=== PATIENT | male | born 1970 | race Caucasian/White ===

== ENCOUNTER 2019-08-08 14:57 | Inpatient (IN) | payer OTHER ==
[~2019-08-08 14:57] MED LIST: Iopamidol-370 76% 500 ML 1 ML ONE
[2019-08-08] MEDS ORDERED: Metoprolol Tartrate 5 MG/5 ML VIAL ONE (15:17)
[2019-08-08 15:58] LABS: Acetaminophen Less than 6.0 mcg/mL (10.0-30.0); Alcohol Less than 10 mg/dL (Less than 10); Magnesium 1.7 mg/dL (1.6-2.6); Salicylate Less than 8.0 mg/dL (15.0-30.0)
--- NOTE | 2019-08-08 17:37 | CT ---
CT ANGIOGRAM CHEST WITH CONTRAST: History: Tachycardia, pre-syncope, chest pain. Comparison: Chest radiograph, same day, for reference. FINDINGS: CT angiogram chest performed after the intravenous administration of contrast. 3D Rendering was provi ded. No proximal segmental pulmonary arterial filling defect. The semi-aorta is mildly ectatic, measuring up to 4 cm in size. No mediastinal adenopathy. No pericardial effusion. Diffuse hepatic steatosis. The lungs are clear. No pneumothorax. No effusion. No pulmonary consolidation. Sternum and manubrium are intact. Thoracic spine is intact. IMPRESSION: 1. No pulmonary embolism. 2. No evidence for pneumonia or other acute thoracic abnormality. 3. Mild ectasia of the aorta which measures 4 cm in size. POS: [facility]
[2019-08-08] MEDS ORDERED: Acetaminophen 325 MG TAB PO PRN (17:52)
[2019-08-08] MEDS ORDERED: Acetaminophen 650 MG Suppository PR PRN (17:52)
[2019-08-08 17:56] LABS: Bilirubin Negative (Negative); Blood, Urine Negative (Negative); Clarity Clear (Clear); Glucose, Urine (Dipstick) Normal (Negative); Leukocyte Negative Leu/uL (Negative); Nitrite Negative (Negative); Protein, Urine (Dipstick) Negative (Neg-Trace); Urobilinogen Normal mg/dL (Less than 2)
--- NOTE | 2019-08-08 18:04 | PDOC.HHP ---
Hospitalist HPI - History of Present Illness chest pain/palpitations History of Present Illness: Mr. Olivo states he woke up this morning feeling a "twinge" in his chest as if his chest muscles were sore. He has been doing a lot of work outside and states he has terrible allergies. After taking a shower he began to feel "wobbly" and continued to have discomfort in the center of his chest which he describes as a "pressure". This prompted him to seek medical attention at [facility]. He had initial labs done which showed elevated AST/ALT, otherwise unremarkable. Patient noted to be in SVT with HR in 160s-170s. He was given Aspirin at home and 4 mg of Morphine. He ED Course: In the ED here he has had a low grade temp of 99.5. HR has been in the 70s to 90s. EKG shows normal sinus rhythm, Rate (beats per minute): 94, with premature atrial complexes, Compared with previous EKG from, earlier today x 2, Interpretation:, Similar to old EKG, Conduction with, ST segments normal, T waves normal, Cum[place] normal, Clinical impression:, non-specific EKG. His BP was elevated at 172/118, therefore he was given Metoprolol tartrate 10 mg IV x 1. 1L of NS given as well. Trop negative. D-Dimer 0.53. CXR done was uremarkable. CTA Chest showed no PE. There was mild ectasia of the aorta which measures 4 cm in size. Hospitalist ROS - Review of Systems Constitutional: denies: fever, chills, sweats, weakness, malaise, other Eyes: denies: pain, vision change, conjunctivae inflammation, eyelid inflammation, redness, other ENT: denies: ear pain, ear discharge, nose pain, nose discharge, nose congestion , mouth pain, mouth swelling, throat pain, throat swelling, other Respiratory: reports: cough (associated with allergies when he is working outside) Cardiovascular: reports: chest pain (central, pressure, has resolved), light headedness Gastrointestinal: denies: nausea, vomiting, abdominal pain, diarrhea, constipation, melena, hematochezia, other Genitourinary: denies: dysuria, frequency, incontinence, hematuria, retention, other Musculoskeletal: denies: neck pain, shoulder pain, arm pain, back pain, hand pain, leg pain, foot pain, other Skin: denies: rash, lesions, leda, bruising, other Neurological: denies: weakness, numbness, incoordination, change in speech, confusion, seizures, other - Medication Medications: ALLERGIES: NKDA CURRENT MEDICATIONS: 1. Aspirin. 2. Zyrtec. Hospitalist History - Past Medical History Source: patient Pulmonary: reports: deep vein thrombosis (in 2011 following ankle surgery) ENT: reports: Allergic rhinitis - Past Surgical History Past Surgical History: reports: Other (Ankle surgery in 2010) - Family History Family History: reports: no pertinent history - Social History Smoking Status: Never smoker Alcohol: reports: Heavy (5-6 cans of beer daily, denies withdrawal symptoms in the past or seizures.) Living Situation: With Family Occupation: Recently furloughed Activity level: independent ambulation - Exam General Appearance: NAD, awake alert Eye: PERRL, anicteric sclera ENT: normocephalic atraumatic Neck: supple Heart: RRR Respiratory: CTAB, no wheezes, no rales, normal chest expansion, no tachypnea Gastrointestinal: soft, non-tender, non-distended, no guarding, no rigidity Extremities: no cyanosis, no clubbing, no edema Skin: normal turgor, no lesions, no rashes Neurological: cranial nerve grossly intact Musculoskeletal: normal tone, normal strength, no muscle wasting Psychiatric: normal affect, normal behavior, A&O x 3 Hospitalist Results - Labs Lab results: Troponin I Less than 0.010 ng/mL (< 0.028) 08/08/19 15:24 Urine Ketones 10 mg/dL (Negative) A 08/08/19 17:34 Urine Blood Negative (Negative) 08/08/19 17:34 Urine Nitrite Negative (Negative) 08/08/19 17:34 Ur Leukocyte Esterase Negative Ann/uL (Negative) 08/08/19 17:34 - Radiology Interpretation CT scan - chest Status: report reviewed by me Chest x-ray Status: report reviewed by me Hospitalist H&P A/P - Problem (1) Chest pain Code(s): R07.9 - CHEST PAIN, UNSPECIFIED Status: Resolved (2) SVT (supraventricular tachycardia) Code(s): I47.1 - SUPRAVENTRICULAR TACHYCARDIA Status: Acute (3) Palpitation Code(s): R00.2 - PALPITATIONS Status: Acute (4) Lightheaded Code(s): R42 - DIZZINESS AND GIDDINESS Status: Acute (5) History of DVT of lower extremity Code(s): Z86.718 - PERSONAL HISTORY OF OTHER VENOUS THROMBOSIS AND EMBOLISM Status: Chronic (6) Daily consumption of alcohol Code(s): Z78.9 - OTHER SPECIFIED HEALTH STATUS Status: Chronic (7) Seasonal allergies Code(s): J30.2 - OTHER SEASONAL ALLERGIC RHINITIS Status: Chronic - Plan Plan: Cardiac monitoring. Continue to trend troponins. Monitor BP. Initiate ASE protocol. UDS/UA/UCx ordered in ED. Results pending. Echo ordered. Gentle hydration, given s/p CTA and NPO at midnight. CODE STATUS: FULL Surrogate decision maker: His Young Olivo. Case discussed with Dr. Cevrantes who agrees with plan as above.
[2019-08-08 18:25] LABS: Amphetamine Not Detected (NotDetected); Barbiturates Screen Not Detected (NotDetected); Benzodiazepine Screen Not Detected (NotDetected); Cocaine Metabolite Screen Not Detected (NotDetected); Medtox Control Line Valid? VALID (VALID); Medtox Reader # READER 1; Methadone Not Detected (NotDetected); Methamphetamine Not Detected (NotDetected); Opiate Screen Detected (NotDetected); Oxycodone Screen Not Detected (NotDetected); Phencyclidine (PCP) Not Detected (NotDetected); THC/Cannabinoid Screen Not Detected (NotDetected); Tricyclic Screen Not Detected (NotDetected)
[2019-08-08 19:21] LABS: Troponin I Less than 0.010 ng/mL (< 0.028)
[2019-08-08 19:43] VITALS: BMI 28.8
[2019-08-08 22:25] LABS: Troponin I 0.035 ng/mL (< 0.028)
[2019-08-09 04:57] LABS: #Basophils 0.1 thou/uL (0.0-0.2); #Eosinphils 0.2 thou/uL (0.0-0.7); #Lymphocytes 1.8 thou/uL (1.20-3.40); #Neutrophils 5.8 thou/uL (1.40-6.50); %Eosinophils 2.7 % (0.0-10.0); %Lymphocytes 19.9 % (21.0-51.0); %Monocytes 11.4 % (0.0-10.0); Hemoglobin 13.9 g/dL (14.0-18.0); Mean Corpuscular HGB CONC 32.6 g/dL (32.0-36.0); Mean Corpuscular Hemoglobin 31.9 pg (27.0-31.0); Mean Corpuscular Volume 97.9 fL (78.0-98.0); Mean Platelet Volume 9.1 fL (7.4-10.4); Platelet Count 203 thou/uL (130-400); RBC Distribution Width 12.4 % (11.5-14.5); Red Blood Cell (RBC) Count 4.35 mill/uL (4.70-6.10); White Blood Cell (WBC) Count 8.9 thou/uL (4.8-10.8)
[2019-08-09] MEDS: Nitroglycerin 0.4 MG TAB (25 Tab Bottle) PO PRN ×2 (04:58→05:08)
[2019-08-09 05:20] LABS: ALT (SGPT) 120 U/L (8-55); AST (SGOT) 81 U/L (5-34); Albumin 3.8 g/dL (3.5-5.0); Alkaline Phosphatase 71 U/L (40-110); Anion Gap 12 mmol/L (10-20); BUN (Urea Nitrogen) 10 mg/dL (8.9-20.6); Bilirubin, Total 1.2 mg/dL (0.2-1.2); Calc. Creatinine Clearance 140 mL/min (70-130); Calcium 8.6 mg/dL (7.8-10.44); Carbon Dioxide 26 mmol/L (22-29); Chloride 105 mmol/L (98-107); Estimated GFR-MDRD Greater than 90; Globulin 2.8 g/dL (2.4-3.5); Glucose 101 mg/dL (70-105); Potassium 3.9 mmol/L (3.5-5.1); Protein, Total 6.6 g/dL (6.0-8.3); Sodium 139 mmol/L (136-145)
[2019-08-09 05:22] LABS: Troponin I 0.014 ng/mL (< 0.028)
[2019-08-09] MEDS ORDERED: Aspirin 81 mg Enteric Coated Tablet PO SCH (09:00)
[2019-08-09] MEDS: Multivit, Therapeutic 1 TAB PO SCH (09:09)
[2019-08-09] MEDS: Aspirin 325 mg Enteric Coated Tablet PO SCH (09:09)
[2019-08-09] MEDS ORDERED: Metoprolol Tartrate 25 MG TAB PO SCH (14:45)
--- NOTE | 2019-08-09 20:16 | EKG ---
Test Reason : CP Blood Pressure : / mmHG Vent. Rate : 075 BPM Atrial Rate : 075 BPM P-R Int : 134 ms QRS Dur : 086 ms QT Int : 478 ms P-R-T Axes : 047 049 046 degrees QTc Int : 533 ms Normal sinus rhythm Prolonged QT Abnormal ECG No previous ECGs available Confirmed by DR. Ignacia BRIGGS MD ([id number]) on 08/09/2019 8:16:33 PM Referred By: CHING Confirmed By:DR. Ignacia BRIGGS MD
[2019-08-09] MEDS: Metoprolol Tartrate 25 MG TAB PO SCH (20:33)
--- NOTE | 2019-08-09 20:46 | CON ---
DATE OF CONSULTATION: HISTORY: Ezra Olivo is a 49-year-old white male without any significant recent medical history. He does admit that he probably had his blood pressure checked in the last 5 or 6 years. Yesterday morning at approximately 08:30 after getting up from bed, he felt a twinge in his chest. He went outside and did some yard work. When he came back and took a shower, felt very lightheaded and dizzy. Also had some pressure in his chest. Ultimately, EMS was called and from the EKG at that time , his heart rate was 150 per minute. This appears to be atypical atrial flutter. He was taken to emergency room in [place] and EKG there revealed sinus rhythm with sinus arrhythmia. He ultimately was transferred here for further evaluation. Blood pressure was elevated in the emergency room. Here at [facility], he received metoprolol 10 mg IV. He denies any symptoms at this time. PAST MEDICAL HISTORY: He denies any previous history of hypertension. No hypercholesterolemia or diabetes. He does have history of right leg DVT after ankle ORIF surgery and was placed on warfarin for this approximately 10 years ago. MEDICATIONS: Zyrtec, aspirin 81, multivitamin. ALLERGIES: PEANUTS. SOCIAL HISTORY: He smoked many years ago. He has 5 to 6 beers per day. He works repairing copiers. FAMILY HISTORY: His mother and father apparently had myocardial infarctions. REVIEW OF SYSTEMS: A 10-point review of systems is otherwise unremarkable. PHYSICAL EXAMINATION: VITAL SIGNS: Blood pressure 155/110, pulse 73. HEENT: PERRL. NECK: Supple. CHEST: Clear. CARDIAC: S1 and S2 normal without any S3, S4, or murmurs. Carotid upstrokes normal without bruits. ABDOMEN: Normal bowel sounds without tenderness or organomegaly. EXTREMITIES: Revealed no clubbing, cyanosis, or edema. NEUROLOGIC: Grossly intact. SKIN: Warm and dry. LABORATORY DATA: EKG in [place] revealed sinus rhythm with extreme sinus arrhythmia, otherwise was unremarkable. Echocardiogram revealed ejection fraction of 50% to 55% with mild left atrial enlargement, mild mitral regurgitation, mild tricuspid regurgitation. Hemoglobin 13.9, hematocrit 42.6, white count 8900, platelets 203,000. D-dimer 0.53. Sodium 139, potassium 3.9, chloride 105, carbon dioxide 26, BUN 10, and creatinine 0.76. Troponin I normal x3 and then there was one of 0.035. TSH is normal. AST 150, ALT 167. BNP 18.5. Urine drug screen is positive for opiates ; however, he received morphine intravenously at [facility]. Otherwise , urine drug screen is negative. Chest CTA revealed no pulmonary embolism. No evidence for pneumonia. There is mild ectasia of the aorta measuring 4 cm. IMPRESSION: 1. Transient episodes of atypical atrial flutter with heart rates up to 150 per minute. 2. Probably untreated hypertension. 3. Positive family history. 4. Distant smoker. 5. ETOH use of 5 to 6 beers per day with elevated liver function tests. RECOMMENDATIONS: Mr. Olivo appears to have had an episode of atypical atrial flutter and also hypertension. I will start him on beta-crystal to control blood pressure and also hopefully to control his atypical atrial flutter. He certainly in the future may need more potent medications. His CHADS-VASc score is 1 and I feel that he could just take aspirin. Also with chest pressure, he will undergo adenosine Cardiolite testing for further evaluation. A fasting lipid profile will be obtained. Certainly, his liver function tests need to be further evaluated and maybe related to his 5 to 6 beers per day. Job ID: [id number] [facility]ITAL[facility]
--- NOTE | 2019-08-09 22:14 | PDOC.HOSPP ---
- Subjective Encounter Date: 08/09/19 Encounter Time: 09:00 Subjective: no overnight events. Chest pain has resolved and has no complaints. Tele showing normal sinus with paroxysmal aflut - Objective Vital Signs & Weight: Vital Signs (12 hours) Temp Pulse Resp BP Pulse Ox 08/09/19 15:32 98.0 F 73 15 165/97 H 97 08/09/19 11:15 97.6 F 73 16 155/100 H 97 Weight Weight 184 lb I&O: 08/08/19 08/09/19 08/10/19 06:59 06:59 06:59 Intake Total 480 720 Output Total 600 Balance -120 720 Result Diagrams: 08/09/19 04:23 08/09/19 04:23 Hospitalist ROS - Review of Systems Constitutional: denies: fever, chills, sweats, weakness, malaise, other Respiratory: denies: cough, dry, shortness of breath, hemoptysis, SOB with excertion, pleuritic pain, sputum, wheezing, other Cardiovascular: denies: chest pain, palpitations, orthopnea, paroxysmal noc. dyspnea, edema, light headedness, other Gastrointestinal: denies: nausea, vomiting, abdominal pain, diarrhea, constipation, melena, hematochezia, other - Medication Medications: Active Medications Generic Name Dose Route Start Last Admin Trade Name Freq PRN Reason Stop Dose Admin Aspirin 81 mg 08/09/19 09:00 08/09/19 09:09 Ecotrin PO 81 mg DAILY MARIBEL Administration Metoprolol Tartrate 25 mg 08/09/19 21:00 08/09/19 20:33 Lopressor PO 25 mg BID MARIBEL Administration Multivitamins 1 tab 08/09/19 09:00 08/09/19 09:09 Theragran PO 1 tab DAILY MARIBEL Administration Nitroglycerin 0.4 mg 08/08/19 18:32 08/09/19 05:08 Nitrostat PO 0.4 mg Q5MIN PRN Administration Chest Pain - Exam General Appearance: NAD, awake alert Heart: RRR, no murmur, no gallops, no rubs, normal peripheral pulses Respiratory: CTAB, no wheezes, no rales, no ronchi, normal chest expansion, no tachypnea, normal percussion Gastrointestinal: soft, non-tender, non-distended, normal bowel sounds, no palpable masses, no hepatomegaly, no splenomegaly, no bruit Extremities: no edema Psychiatric: normal affect, normal behavior, A&O x 3 Hosp A/P - Plan #substrenal chest pain -related to exertion and relieved by rest -intermediate consortium CAD pretest probabilty -pending stress test #paroxysmal atrial flutter -CHADSVASC 1 -continue aspirin -start metoprolol as per cardiology #Hepatitis -ALT > AST -check for hepatitis, hemochromatosis, NAFLD
[2019-08-10 04:57] LABS: ALT (SGPT) 427 U/L (8-55); AST (SGOT) 423 U/L (5-34); Alkaline Phosphatase 73 U/L (40-110); Anion Gap 13 mmol/L (10-20); BUN (Urea Nitrogen) 10 mg/dL (8.9-20.6); Bilirubin, Total 1.8 mg/dL (0.2-1.2); Calc. Creatinine Clearance 137 mL/min (70-130); Calcium 9.2 mg/dL (7.8-10.44); Carbon Dioxide 25 mmol/L (22-29); Chloride 105 mmol/L (98-107); Cholesterol 173 mg/dl (< 200 Desired); Estimated GFR-MDRD Greater than 90; Glucose 104 mg/dL (70-105); HDL Cholesterol 86 mg/dL (>60 Neg Risk); Iron Binding Capacity, Total 264 mcg/dL (261-462); LDL Cholesterol, Calculated 77 mg/dL; Potassium 3.9 mmol/L (3.5-5.1); Sodium 139 mmol/L (136-145); Transferrin, Serum 211 mg/dL (174-364); Triglycerides 48 mg/dL (Less than 150)
[2019-08-10 05:16] LABS: HBSAB Concentration 2.24 mIU/mL; HBSAg Index 0.11 S/CO (0-0.99); Hep B Core Total Ab Non-Reactive (NonReactive); Hep B Core Total Index 0.06 S/CO (0-0.79); Hep B Surf AB Non-Reactive (NonReactive); Hep B Surf Ag Non-Reactive S/CO (NonReactive)
--- NOTE | 2019-08-10 08:25 | ULT ---
COMPLETE ABDOMINAL ULTRASOUND: Comparison: None History: Elevated LFTs, diarrhea. Technique: Multiplanar grayscale and color doppler images were obtained in a complete abdominal ultra sound. FINDINGS: The liver demonstrates increased echogenicity without focal lesions or intrahepatic ductal dilatation . The gallbladder is contracted without shadowing stones or pericholecystic fluid. The common bile du ct is normal measuring 3 mm. Aorta and inferior vena cava are normal in caliber. The visualized portions of the pancreas are unrem arkable. The spleen is normal in echogenicity without focal lesions and measures 9.3 cm in length. Kidneys are normal in echogenicity without hydronephrosis or calculi and measure 11.0 and 9.7 cm in l ength on the right and left, respectively. IMPRESSION: Fatty liver. POS: [facility]
[2019-08-10] MEDS ORDERED: Regadenoson 0.4 MG/5 ML SYRINGE ONE (09:13)
[2019-08-10] MEDS: Aspirin 325 mg Enteric Coated Tablet PO SCH (11:07)
[2019-08-10] MEDS: Multivit, Therapeutic 1 TAB PO SCH (11:07)
[2019-08-10] MEDS: Metoprolol Tartrate 25 MG TAB PO SCH (11:19)
--- NOTE | 2019-08-10 11:26 | NM ---
NUCLEAR MEDICINE CARDIAC MYOCARDIAL PERFUSION SPECT EJECTION FRACTION STUDY WALL MOTION CINE: DATE: 08/10/2019 HISTORY: 49-year-old male with atrial flutter and family history of coronary artery disease presents with acut e chest pain. TECHNIQUE: Number of days: 1 Rest study: Technetium 99m-sestamibi (Cardiolite) dose: 9.8 mCi Pharmacologic stress: Lexiscan dose: 0.4 mg Stress study: Technetium 99m-sestamibi (Cardiolite) dose: 33.0 mCi FINDINGS: CARDIAC (MYOCARDIAL PERFUSION) SPECT There are no reversible myocardial perfusion defects. Questionable small anterior wall fixed defect. EJECTION FRACTION STUDY Left ventricular EF = 58 % WALL MOTION CINE Minimal septal hypokinesis. Otherwise normal. IMPRESSION: No evidence of reversible ischemia.
[2019-08-10] MEDS ORDERED: Metoprolol Tartrate 25 MG TAB PO SCH (11:30)
[2019-08-10] MEDS ORDERED: Lisinopril 20 MG TAB PO SCH (16:00)
--- NOTE | 2019-08-10 16:08 | PDOC.HOSPP ---
- Subjective Encounter Date: 08/10/19 Encounter Time: 10:00 Subjective: overnight, had nuclear stress test that showed no reversible ischemia. Feeling well and has no complaints. - Objective Vital Signs & Weight: Vital Signs (12 hours) Temp Pulse Resp BP Pulse Ox 08/10/19 11:02 98.7 F 87 17 152/97 H 98 08/10/19 07:22 98.5 F 68 18 164/98 H 96 08/10/19 06:47 99 Weight Weight 178 lb I&O: 08/09/19 08/10/19 08/11/19 06:59 06:59 06:59 Intake Total 480 1200 Output Total 600 Balance -120 1200 Result Diagrams: 08/09/19 04:23 08/10/19 04:18 Hospitalist ROS - Review of Systems Respiratory: denies: cough, dry, shortness of breath, hemoptysis, SOB with excertion, pleuritic pain, sputum, wheezing, other Cardiovascular: denies: chest pain, palpitations, orthopnea, paroxysmal noc. dyspnea, edema, light headedness, other Gastrointestinal: denies: nausea, vomiting, abdominal pain, diarrhea, constipation, melena, hematochezia, other - Medication Medications: Active Medications Generic Name Dose Route Start Last Admin Trade Name Freq PRN Reason Stop Dose Admin Aspirin 81 mg 08/09/19 09:00 08/10/19 11:07 Ecotrin PO 81 mg DAILY MARIBEL Administration Multivitamins 1 tab 08/09/19 09:00 08/10/19 11:07 Theragran PO 1 tab DAILY MARIBEL Administration Nitroglycerin 0.4 mg 08/08/19 18:32 08/09/19 05:08 Nitrostat PO 0.4 mg Q5MIN PRN Administration Chest Pain - Exam General Appearance: NAD, awake alert Neck: supple, symmetric, no JVD, no thyromegaly, no lymphadenopathy, no carotid bruit Heart: RRR, no murmur, no gallops, no rubs, normal peripheral pulses Respiratory: CTAB, no wheezes, no rales, no ronchi, normal chest expansion, no tachypnea, normal percussion Hosp A/P - Plan #noncardiac chest pain #HTN urgency -nuclear stress test -ve -BP better controlled -added lisinopril #paroxysmal atrial flutter -CHADSVASC 1 -continue aspirin -start metoprolol as per cardiology #Hepatitis -ALT > AST -< 15 fold of normal, likely steatohepatitis -continue to follow ELOS: 1 midnight
[2019-08-10] MEDS: Metoprolol Tartrate 50 MG TAB PO SCH (21:33)
[2019-08-11 04:43] LABS: INR-International Normal Ratio 0.9; Prothrombin Time 11.8 sec (12.0-14.7)
[2019-08-11 04:56] LABS: ALT (SGPT) 455 U/L (8-55); AST (SGOT) 320 U/L (5-34); Albumin 4.1 g/dL (3.5-5.0); Alkaline Phosphatase 79 U/L (40-110); Bilirubin, Direct 0.8 mg/dL (0.1-0.3); Bilirubin, Total 1.9 mg/dL (0.2-1.2); Protein, Total 7.3 g/dL (6.0-8.3)
[2019-08-11 04:58] LABS: Anion Gap 13 mmol/L (10-20); BUN (Urea Nitrogen) 9 mg/dL (8.9-20.6); Calc. Creatinine Clearance 131 mL/min (70-130); Carbon Dioxide 24 mmol/L (22-29); Chloride 105 mmol/L (98-107); Estimated GFR-MDRD Greater than 90; Glucose 109 mg/dL (70-105); Magnesium 2.1 mg/dL (1.6-2.6); Potassium 3.9 mmol/L (3.5-5.1); Sodium 138 mmol/L (136-145)
[2019-08-11] MEDS: Aspirin 325 mg Enteric Coated Tablet PO SCH (08:34)
[2019-08-11] MEDS: Lisinopril 20 MG TAB PO SCH (08:35)
[2019-08-11] MEDS: Multivit, Therapeutic 1 TAB PO SCH (08:35)
[2019-08-11] MEDS: Metoprolol Tartrate 50 MG TAB PO SCH (09:45)
[2019-08-11] MEDS ORDERED: Dronedarone HCl 400 MG TAB PO SCH (13:15)
[2019-08-11] MEDS: Dronedarone HCl 400 MG TAB PO SCH (20:21)
--- NOTE | 2019-08-11 22:32 | PDOC.HOSPP ---
- Subjective Encounter Date: 08/11/19 Encounter Time: 08:00 Subjective: Overnight, long periods of alut in 130-140s, sinus, and sinus anastacia. During sinus anastacia, patient had lightheadedness and saw bright lights. requests to leave for sons birthday but explained that even though CHADVASC low, the chance of a stroke does exist especially considering erratic change in rhythms - Objective Vital Signs & Weight: Vital Signs (12 hours) Temp Pulse Resp BP BP Pulse Ox 08/11/19 19:10 98.9 F 82 16 134/85 134/85 98 08/11/19 16:00 98.9 F 75 20 140/97 H 95 08/11/19 14:03 56 L 08/11/19 11:21 98.2 F 47 L 17 124/78 94 L Weight Weight 178 lb I&O: 08/10/19 08/11/19 08/12/19 06:59 06:59 06:59 Intake Total 1200 1800 1680 Output Total 1475 Balance 1200 1800 205 Result Diagrams: 08/09/19 04:23 08/11/19 04:02 Hospitalist ROS - Review of Systems Constitutional: reports: fever, chills, sweats, weakness, malaise, other Respiratory: reports: cough, dry, shortness of breath, hemoptysis, SOB with excertion, pleuritic pain, sputum, wheezing, other Cardiovascular: reports: chest pain, palpitations, orthopnea, paroxysmal noc. dyspnea, edema, light headedness, other Gastrointestinal: reports: nausea, vomiting, abdominal pain, diarrhea, constipation, melena, hematochezia, other Genitourinary: reports: dysuria, frequency, incontinence, hematuria, retention, other - Medication Medications: Active Medications Generic Name Dose Route Start Last Admin Trade Name Freq PRN Reason Stop Dose Admin Aspirin 81 mg 08/09/19 09:00 08/11/19 08:34 Ecotrin PO 81 mg DAILY MARIBEL Administration Dronedarone 400 mg 08/11/19 21:00 08/11/19 20:21 Multaq PO 400 mg BID MARIBEL Administration Lisinopril 20 mg 08/11/19 09:00 08/11/19 08:35 Zestril PO 20 mg DAILY MARIBEL Administration Multivitamins 1 tab 08/09/19 09:00 08/11/19 08:35 Theragran PO 1 tab DAILY MARIBEL Administration Nitroglycerin 0.4 mg 08/08/19 18:32 08/09/19 05:08 Nitrostat PO 0.4 mg Q5MIN PRN Administration Chest Pain - Exam General Appearance: NAD, awake alert Heart: no murmur, no gallops, no rubs, normal peripheral pulses, irregular Heart - other findings: aflut on tele, asymptomatic Respiratory: CTAB, no wheezes, no rales, no ronchi, normal chest expansion, no tachypnea, normal percussion Gastrointestinal: soft, non-tender, non-distended, normal bowel sounds, no palpable masses, no hepatomegaly, no splenomegaly, no bruit Extremities: no edema Hosp A/P - Plan #noncardiac chest pain #HTN urgency -nuclear stress test -ve -BP better controlled #paroxysmal atrial flutter -CHADSVASC 1 -episodes of sinus bradycardia -continue aspirin -metoprolol and multaq per cardiology #Hepatitis -ALT > AST -< 15 fold of normal, likely steatohepatitis -continue to follow ELOS: pending cardiology clearance
[2019-08-12 04:47] LABS: ALT (SGPT) 295 U/L (8-55); AST (SGOT) 130 U/L (5-34); Albumin 3.8 g/dL (3.5-5.0); Alkaline Phosphatase 65 U/L (40-110); Anion Gap 13 mmol/L (10-20); BUN (Urea Nitrogen) 10 mg/dL (8.9-20.6); Bilirubin, Total 1.9 mg/dL (0.2-1.2); Calc. Creatinine Clearance 127 mL/min (70-130); Calcium 8.9 mg/dL (7.8-10.44); Carbon Dioxide 24 mmol/L (22-29); Chloride 104 mmol/L (98-107); Estimated GFR-MDRD Greater than 90; Globulin 2.7 g/dL (2.4-3.5); Glucose 100 mg/dL (70-105); Potassium 3.3 mmol/L (3.5-5.1); Protein, Total 6.5 g/dL (6.0-8.3); Sodium 138 mmol/L (136-145)
[2019-08-12] MEDS: Multivit, Therapeutic 1 TAB PO SCH (08:00)
[2019-08-12] MEDS: Dronedarone HCl 400 MG TAB PO SCH (08:00)
[2019-08-12] MEDS: Lisinopril 20 MG TAB PO SCH (08:00)
[2019-08-12] MEDS ORDERED: Aspirin 81 mg Enteric Coated Tablet PO SCH (09:00)
[2019-08-12 12:00] VITALS: BP 134/96; TEMP 99.3
[2019-08-12] MEDS: Potassium Chloride 20 MEQ TAB PO SCH ×2 (12:24→15:48)
[2019-08-12] MEDS ORDERED: Apixaban 5 MG TAB PO SCH (21:00)
--- NOTE | 2019-08-12 21:43 | CON ---
DATE OF CONSULTATION: HISTORY OF PRESENT ILLNESS: I am seeing Mr. 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 His problems are; 1. Paroxysmal atrial fibrillation/atypical flutter with rapid ventricular rate. 2. Sinus bradycardia and response to beta-crystal therapy, now discontinued. 3. Structurally normal heart with;. a. 2D echo shows LVEF of 50% to 55%, mild left atrial enlargement, mild MR and TR. b. Nuclear stress test shows questionable anterior scar, LVEF 58%. No ischemia. 4. CHADS-VASc score of 2 with history of hypertension and also remote history of lower extremity venous thrombosis related to a foot surgery. ALLERGIES: PEANUT. MEDICATIONS: At home included; 1. Multivitamin. 2. Cetirizine. 3. Baby aspirin. 4. Vitamin C. 5. Zinc. SUBJECTIVE: Mr. Olivo was admitted on the with recurrent palpitations. He was evaluated in the ER, had borderline temperatures. Chest x-ray was unremarkable. There was noted to be intermittent atrial fibrillation on telemetry floor. Dr. Hooper was consulted and beta-blockers initiated. He became markedly bradycardic with symptoms, in the 40s on beta-crystal; therefore, it was later stopped. Heart rates are more better controlled now. He was initiated on Multaq. Currently, he is doing well on the dronedarone which was started yesterday. He never passed out. He had some chest tightness, chest pain sensation which is now resolved. Denies PND or orthopnea. No fever, chills, or cough. No stroke-like symptoms. No neurological deficits. No bleeding issues. Rest of 12-point systems is otherwise unremarkable. PAST MEDICAL HISTORY: As above, had history of foot surgery and related DVT in 2010. No additional thrombosis was noted. CT of the chest was negative for PE. Troponins were negative as well. SOCIAL HISTORY: Never smoked. Drinks moderate amount of alcohol, 5 to 6 cans of beer a day. Denies drug use. He is , has children. FAMILY HISTORY: Not contributory. OBJECTIVE DATA: VITAL SIGNS: Blood pressure is 134/96, heart rate 89, respirations 20, and temperature 99.3 degrees Fahrenheit. GENERAL: He is an alert and oriented man, in no apparent distress. NECK: Supple. Jugular veins not distended. CHEST: Coarse without crackles. HEART: Sounds are regular to rate and rhythm. No murmur or gallop appreciated. PMI is nonpalpable. ABDOMEN: Benign. Bowel sounds positive. EXTREMITIES: Lower extremities without edema, clubbing, or cyanosis. Pulses are adequate. NEUROLOGIC: The patient is nonfocal. MUSCULOSKELETAL: Without joint swelling or deformities. SKIN: Without rash. DATABASE: EKG is reviewed. Initial EKG from August 08, 2019 reveals sinus rhythm, rate of 94 beats per minute, narrow QRS. No significant ST changes. QTc is 470 milliseconds. Subsequent telemetry strips reveals development of atrial fibrillation/atypical flutter. Also 4-beat wide-complex run is seen which could be considered aberrant conducted AFib. There is marked bradycardia seen on the with heart rates in the 40s, likely beta-crystla effect, now resolved. LABORATORY DATA: The white cell count 8.9, hemoglobin by venous 13.9, platelet count is 203. INR was 0.9. Sodium 138, potassium 3.3, BUN is 10, and creatinine is 0.8. Troponin is 0.01, peak 0.035. Ultrasound report reveals fatty liver changes. ASSESSMENT AND PLAN: Mr. Olivo is a pleasant 49-year-old man with prior history of hypertension and remote history of surgery-related lower extremity thrombosis. Now he presents with recurrent atrial fibrillation with rapid rates which is highly symptomatic. He has bradycardic episodes with taking beta-blockers, therefore it was stopped. Now, he seems to be converted back to sinus rhythm on Multaq. So far, heart rates are reasonable. We discussed treatment options. Clearly, continued Multaq therapy is an option. Alternatively, flecainide could be considered, although in that case he might need to resume beta-blockers which he did not tolerate well. Tikosyn may be difficult proposition due to a longer QT interval. We discussed also option of ablative therapy if he is not tolerating Multaq. We have discussed the procedure, rationale, risks associated with this procedure including stroke, bleeding, tamponade, recurrences, esophageal damage requiring surgery, cardiac tamponade. He understands and is strongly considering it, would like to followup as an outpatient. My plan in short; 1. Agree with continued Multaq 4 mg twice a day, monitor for bradycardia as outpatient. 2. Add oral anticoagulants like Eliquis 5 mg twice a day or Xarelto. 3. Outpatient followup for discussion of potential future ablation plan in 2 to 4 weeks. Job ID: [id number] [facility]
--- NOTE | 2019-08-15 13:38 | DIS ---
DATE OF ADMISSION: 08/08/2019 DATE OF DISCHARGE: 08/12/2019 Mr. Olivo is a 49-year-old male, with no known medical history, who presented with lightheadedness and dizziness as well as chest pressure in his chest. EMS took an EKG and his heart rate was 150, showing atypical atrial flutter. Cardiology was consulted and changed the patient with Multaq. The patient's symptoms improved and he was discharged with followup appointments with Cardiology. DISCHARGE MEDICATIONS: New medications: 1. Nitroglycerin 0.4 mg sublingual q.5 minutes p.r.n. chest pain. 2. Apixaban 5 mg b.i.d. 3. Multaq 400 mg b.i.d. 4. Lisinopril 20 mg daily. Continued medications: 1. Multivitamins. 2. Cetirizine. 3. Aspirin. Discontinued medications: None. The patient was discharged with followup appointments with Electrophysiology and order for stress for ablation. Job ID: [id number]
== END 2019-08-12 15:30 | disposition home or self-care (01) | DRG 310 ==
LOC: ERS 14:57 → OBSVTOIN 17:19 → 2NO 17:19
PROVIDERS: ADMIT Internal Medicine; ATTEND Internal Medicine
DX: I48.4 Atypical atrial flutter (principal); I47.1 Supraventricular tachycardia; I16.0 Hypertensive urgency; F41.9 Anxiety disorder, unspecified; J30.2 Other seasonal allergic rhinitis; K75.81 Nonalcoholic steatohepatitis (NASH); R00.1 Bradycardia, unspecified; I48.91 Unspecified atrial fibrillation; Z79.01 Long term (current) use of anticoagulants; Z78.9 Other specified health status; Z86.718 Personal history of other venous thrombosis and embolism; Z87.891 Personal history of nicotine dependence
CPT/HCPCS: 36415; 71275; 78452; 80048; 80053; 80061; 80076; 80306; 80307; 81003; 83550; 83735; 84443; 84466; 84484; 85025; 85379; 85610; 86704; 86706; 87340; 87902; 93005; 93010; 93017; 93306; 93975; 94760; 96360; 96361; 96374; A9500; J2785; Q9967

== ENCOUNTER 2019-09-15 05:58 | Outpatient (CLI) | payer OTHER ==
[2019-09-15 10:35] LABS: Hemoglobin 15.1 g/dL (14.0-18.0); Mean Corpuscular HGB CONC 33.3 g/dL (32.0-36.0); Mean Corpuscular Hemoglobin 31.4 pg (27.0-31.0); Mean Corpuscular Volume 94.5 fL (78.0-98.0); Mean Platelet Volume 9.7 fL (7.4-10.4); Platelet Count 258 thou/uL (130-400); RBC Distribution Width 11.5 % (11.5-14.5); White Blood Cell (WBC) Count 7.3 thou/uL (4.8-10.8)
[2019-09-15 10:52] LABS: Prothrombin Time 13.5 sec (12.0-14.7)
[2019-09-15 10:53] LABS: PTT 34.3 sec (22.9-36.1)
[2019-09-15 10:54] LABS: Anion Gap 12 mmol/L (10-20); BUN (Urea Nitrogen) 15 mg/dL (8.9-20.6); Calc. Creatinine Clearance 0 mL/min (70-130); Calcium 9.6 mg/dL (7.8-10.44); Carbon Dioxide 26 mmol/L (22-29); Chloride 105 mmol/L (98-107); Estimated GFR-MDRD Greater than 90; Glucose 86 mg/dL (70-105); Potassium 4.5 mmol/L (3.5-5.1); Sodium 138 mmol/L (136-145)
[2019-09-16 14:25] LABS: SARS-CoV-2 MS2 Positive; SARS-CoV-2 N Gene Negative; SARS-CoV-2 S Gene Negative; SARS-CoV-2 orf1ab Negative
== END 2019-09-15 05:59 | disposition home or self-care (01) ==
LOC: LABBT 05:58
PROVIDERS: ATTEND Internal Medicine Cardiovascular Disease
DX: Z01.812 Encounter for preprocedural laboratory examination (principal); Z11.59 Encounter for screening for other viral diseases; I48.91 Unspecified atrial fibrillation
CPT/HCPCS: 80048; 85027; 85610; 85730; 87635; U0003

== ENCOUNTER 2019-09-19 05:46 | Observation (INO) | payer OTHER ==
[2019-09-14 15:55] VITALS: BMI 28.1
[2019-09-19] MEDS ORDERED: Heparin 25,000 units/D5W 500 ML ONE (06:36)
[2019-09-19] MEDS ORDERED: Heparin 10,000 UNITS/1 ML VIAL ONE ×2 (06:36→09:23)
[2019-09-19] MEDS ORDERED: Isoproterenol 0.2 MG/1 ML AMP ONE ×2 (06:37→09:23)
[2019-09-19] MEDS ORDERED: SUGAMMADEX SODIUM 200 MG/2 ML VIAL ONE (07:08)
[2019-09-19] MEDS ORDERED: Midazolam HCl 2 mg/2 ml Vial ONE (07:08)
[2019-09-19] MEDS ORDERED: Rocuronium Bromide 50 MG/5 ML VIAL ONE (07:08)
[2019-09-19] MEDS ORDERED: Fentanyl 100 MCG/2 ML VIAL ONE ×2 (07:08→10:52)
[2019-09-19] MEDS ORDERED: Ondansetron PF 4 MG/2 ML Vial ONE (10:26)
[2019-09-19] MEDS ORDERED: Glycopyrrolate 0.2 MG/ML 5 ML SYRINGE ONE (10:26)
[2019-09-19] MEDS ORDERED: Dexamethasone 20 MG/5 ML VIAL ONE (10:26)
[2019-09-19] MEDS ORDERED: ePHEDrine 50 MG/ML VIAL ONE (10:26)
[2019-09-19] MEDS ORDERED: diphenhydrAMINE 50 MG/ML VIAL ONE (10:26)
[2019-09-19] MEDS ORDERED: PROPOFOL 200 MG/20 ML VIAL ONE (10:26)
[2019-09-19] MEDS ORDERED: Rocuronium Bromide 10 MG/ML (10ML VIAL) ONE (10:26)
[2019-09-19] MEDS ORDERED: Ketorolac Tromethamine 30 MG/ML VIAL ONE (10:26)
[2019-09-19] MEDS ORDERED: Protamine Sulfate 50 MG/5 ML VIAL ONE (10:56)
[2019-09-19] MEDS ORDERED: Promethazine HCl 25 MG/ML VIAL IM PRN (11:12)
[2019-09-19] MEDS ORDERED: Meperidine HCl/PF 25 MG/ML VIAL SLOW IVP PRN (11:12)
[2019-09-19] MEDS ORDERED: Promethazine HCl 25 MG/ML VIAL SLOW IVP PRN (11:12)
[2019-09-19] MEDS ORDERED: Morphine Sulfate 2 MG/ML SYRINGE SLOW IVP PRN (11:12)
[2019-09-19] MEDS ORDERED: Ondansetron HCl/PF 4 MG/2 ML Vial IVP PRN (11:12)
[2019-09-19] MEDS ORDERED: HYDROmorphone 2 MG/ML VIAL SLOW IVP PRN (11:12)
[2019-09-19] MEDS ORDERED: Sucralfate 1 GM TAB PO PRN (11:56)
[2019-09-19] MEDS ORDERED: Ketorolac Tromethamine 30 MG/ML VIAL IVP PRN (11:57)
--- NOTE | 2019-09-19 15:20 | OP ---
DATE OF PROCEDURE: 09/19/2019 PROCEDURE PERFORMED: Electrophysiology study and radiofrequency ablation. REASON FOR PROCEDURE: Mr. Olivo is a 49-year-old man with history of paroxysmal highly symptomatic atrial fibrillation, not suppressed by beta blockers and intolerance to Multaq, QT prolongation, making anti agent choice difficult. He is here for a pulmonary venous isolation procedure. He has been well anticoagulated with Eliquis over a month. DESCRIPTION OF PROCEDURE: The patient received general anesthesia by anesthesia specialist. The left and right femoral vein was prepped, draped, and accessed with a Multipurpose needle under ultrasound guidance. On the left side, an 11-Arabic sheath was used to advance an intracardiac echocardiogram probe to the right atrium. It was used to monitor the transeptal puncture, catheter manipulation, and the pericardial space throughout the procedure. Also, following that, through the left femoral venous access site, a Preface sheath was used to advance a 20-pole duo-Deca catheter to the right atrium and CS position. From the right femoral vein, initially two 8-Arabic short sheaths were introduced, which was used to advance a ThermoCool SFST catheter to the right atrium. 3D map of the right atrium, His bundle, and CS os regions were out. Pacing, mapping, and recording were performed at each location. Following that, IV heparin was administered in a bolus and drip fashion. IV heparin was adjusted throughout the case to keep ACT levels over 350 with periodic checks. Following that, two 8-Arabic right femoral venous sheaths were exchanged to two SL1 transseptal sheaths, which were used to perform a transseptal puncture with the help of a powered [place] needle under ultrasound/intracardiac echo and fluoroscopy monitoring x2. Through the sheath, a ThermoCool SFST and a 20-pole Lasso catheter were advanced to the left atrium. 3D map of the left atrium was performed. A left common pulmonary vein was found and 2 separate right inferior and right superior pulmonary veins were noted. Following that, a standard pulmonary venous isolation procedure was performed, isolating the left common and the right superior and inferior veins independently. A superior and roof and an inferoposterior line was drawn on the posterior wall also to isolate the posterior wall. Throughout the posterior wall brown, close attention was paid to the esophageal temperature with the esophageal temperature probe. Any heating spots were irrigated with high-flow irrigation for cooling effect. The isolation of posterior wall was also performed. In the end of the case, the ablation catheter was advanced to left ventricle. Ventricular pacing was performed to establish Wenckebach and rule out accessory pathway. Following findings were noted. HV interval 41 milliseconds, QRS 100 milliseconds, QT 400 milliseconds, AV Wenckebach cycle length was 260 milliseconds on Isuprel. Retrograde Wenckebach cycle was 220 seconds on Isuprel. Atrial ERP was 600/260 milliseconds without evidence of accessory pathway or dual AV cinthya physiology was present. Burst atrial pacing induced transient atrial flutter, which was quickly staff terminated, possibly right atrial flutter morphology. Isuprel was administered and any reconnection was re-ablated. A total of 83 lesions were placed at total duration of 24 minutes and 54 seconds. In the end of the case, the catheter was removed from the left side. IV heparin was stopped and reversed with protamine. The intracardiac echo probe was then inserted in the RV and effusion was check, but none found. Cardiac silhouette also did not change throughout the procedure. Long sheaths were exchanged to short sheaths and Vascade closure was performed in all 4 femoral veins and the patient tolerated procedure well. CONCLUSION: 1. Successful isolation of the left common, right superior, and right inferior pulmonary veins as well as the posterior wall. 2. No sustained atrial arrhythmia induced with access to my testing burst atrial pacing on and off Isuprel. 3. No evidence of accessory pathway. Normal AV cinthya physiology was noted. No evidence of sinus node abnormality seen either. PLAN: Stop Multaq and resume anticoagulation. Monitor for recurrent arrhythmias. Job ID: [id number]
[2019-09-19] MEDS: Apixaban 5 MG TAB PO SCH ×2 (20:22→20:23)
[2019-09-20] MEDS: Apixaban 5 MG TAB PO SCH (08:47)
[2019-09-20 08:50] VITALS: BP 126/77
[2019-09-20] MEDS ORDERED: Loratadine 10 MG TAB PO SCH (09:00)
[2019-09-20] MEDS ORDERED: Multivit, Therapeutic 1 TAB PO SCH (09:00)
[2019-09-20] MEDS ORDERED: Lisinopril 20 MG TAB PO SCH (09:00)
[2019-09-20 09:50] VITALS: TEMP 98.5
--- NOTE | 2019-09-20 11:27 | ULT ---
EXAM: Right lower extremity venous ultrasound HISTORY: Cold and painful right foot COMPARISON: None TECHNIQUE: Multiplanar grayscale and color Doppler images were obtained in a right lower extremity ve nous ultrasound. Spectral analysis of the Doppler waveforms were performed. FINDINGS: The common femoral vein, profunda femoral vein, superficial femoral vein, and popliteal vei n are normal in appearance without visible thrombus. These vessels demonstrate normal compression, flow, and augmentation. The posterior tibial vein and greater saphenous vein are patent without evidence of thrombus. IMPRESSION: No evidence of DVT.
--- NOTE | 2019-09-20 13:19 | PDOC.BPN ---
- Brief Progress Note There was concern related to me that patient's right lower extremity was cold with faint distal pulses. Venous and arterial ultrasound studies were ordered and performed. I spoke with Dr. Lopez will review the studies. no acute findings. there is no evidence of pseudoaneurysm and there is good arterial flow seen to the dorsalis pedis. the official report has not yet posted but patient is okay to discharge
--- NOTE | 2019-09-20 13:25 | ULT ---
EXAM: Right lower extremity arterial ultrasound HISTORY: Cold right foot COMPARISON: None TECHNIQUE: Multiplanar grayscale and color Doppler images were obtained and a right lower extremity a rterial ultrasound. Spectral analysis of the Doppler waveforms were performed. FINDINGS: No significant calcified plaque is seen in right lower extremity. Right lower extremity: Common femoral artery: Triphasic Profundofemoral artery: Triphasic Superficial femoral artery: Triphasic Popliteal artery: Triphasic Anterior tibial artery: Triphasic Posterior tibial artery: Triphasic Dorsalis pedis artery: Biphasic No significant increase in velocity is seen from a more proximal to a distal segment to suggest an ar ea of focal atherosclerotic disease. IMPRESSION: No significant arterial abnormality of the right leg.
--- NOTE | 2019-09-22 07:44 | EKG ---
Test Reason : PREOP Blood Pressure : / mmHG Vent. Rate : 077 BPM Atrial Rate : 077 BPM P-R Int : 136 ms QRS Dur : 080 ms QT Int : 402 ms P-R-T Axes : 064 044 037 degrees QTc Int : 454 ms Normal sinus rhythm Normal ECG When compared with ECG of 09-AUG-2019 16:24, Premature supraventricular complexes are no longer Present Confirmed by DR. Aaron MOHR ([id number]) on 09/22/2019 7:44:26 AM Referred By: MARIA EUGENIA Confirmed By:DR. Aaron MOHR
--- NOTE | 2019-09-22 07:52 | EKG ---
Test Reason : POST AFIB ABLATION Blood Pressure : / mmHG Vent. Rate : 074 BPM Atrial Rate : 074 BPM P-R Int : 128 ms QRS Dur : 088 ms QT Int : 436 ms P-R-T Axes : 054 048 037 degrees QTc Int : 483 ms Normal sinus rhythm Prolonged QT Abnormal ECG When compared with ECG of 19-SEP-2019 06:55, (Unconfirmed) No significant change was found Confirmed by DR. Aaron MOHR ([id number]) on 09/22/2019 7:51:59 AM Referred By: [facility] Confirmed By:DR. Aaron MOHR
== END 2019-09-20 14:50 | disposition home or self-care (01) ==
LOC: CCL 05:46 → 2NO 12:50 → CCL 09-20 13:55 → 2NO 09-20 13:57
PROVIDERS: ADMIT Internal Medicine Cardiovascular Disease; ATTEND Internal Medicine Cardiovascular Disease
PROC: 4A023FZ Measurement of Cardiac Rhythm, Percutaneous Approach (ICD-10-PCS; principal; 2019-09-20)
PROC: 4A0234Z Measurement of Cardiac Electrical Activity, Percutaneous Approach (ICD-10-PCS; 2019-09-20)
PROC: 02583ZZ Destruction of Conduction Mechanism, Percutaneous Approach (ICD-10-PCS; 2019-09-20)
DX: I48.0 Paroxysmal atrial fibrillation (principal); I45.81 Long QT syndrome; I10 Essential (primary) hypertension; Z79.01 Long term (current) use of anticoagulants; Z79.899 Other long term (current) drug therapy; Z88.8 Allergy status to other drugs, medicaments and biological substances; Z91.010 Allergy to peanuts
CPT/HCPCS: 76942; 85347; 93005; 93010; 93613; 93623; 93655; 93656; 93662; 93923; C1732; C1759; C1884; G0378; J1100; J1200; J1644; J1885; J2250; J2405; J2704; J2720; J3010; J3490